=== PATIENT | female | born 1975 | race Caucasian/White ===

== ENCOUNTER → 2017-05-16 | Day surgery (SDC) | payer OTHER ==
[~2017-05-16] VITALS: Ht 167.6 cm; Wt 72.6 kg
--- NOTE | 2017-05-17 10:49 | Operative Report ---
Operative/Inv Procedure Report Surgery Date: 05/16/17 Name of Procedure: Perineocele repair Pre-Operative Diagnosis: Perineocele Post-Operative Diagnosis: Same Estimated Blood Loss: scant Surgeon/Air Turning Machine Feeder: Jimmy Garland MD Anesthesia: laryngeal mask airway Operative/Procedure Note Note: The patient is brought to the operating room placed on the OR table in dorsal supine position. She was given adequate general general anesthesia and intubated with an LMA mask. She was repositioned in modified dorsal lithotomy prepped and draped in usual sterile fashion. The perineum and vagina were infiltrated with 1% lidocaine with epinephrine. Allis clamps were placed at 4 and 8:00 on the introitus and this was retracted. At the diagonal incision was made on the perineal body and this was extended into the vagina. The vaginal tissue was undermined using Metzenbaum scissors. Electrocautery was used to remove the outer superficial perineal body as well. At this point a figure-of- eight of 0 Polysorb was placed on the cavernous openness muscles and this was imbricated to the midline. 3-0 Polysorb was used in a running nonlocking fashion in the vagina through the perineal body. 3 interrupted sutures of 2-0 Polysorb placed and the perineal body as well. The 30 was then layered down to the apex of the perineal body and back up through the vagina and a subcuticular fashion. At the end of the procedure hemostasis was good the instruments removed patient was awakened and sent to recovery in good condition. All needle, sponge, and instrument counts were correct at the end of the procedure 2.
== END ==
LOC: STS 03:54
DX: N81.81 Perineocele (principal); N90.89 Other specified noninflammatory disorders of vulva and perineum
CPT/HCPCS: 81025; C9399; J0131; J2250